=== PATIENT | female | born 1955 | race Two or more races ===

== ENCOUNTER 2021-03-18 12:33 | Emergency (ER) | payer MEDICARE, MEDICAID ==
[~2021-03-18] VITALS: Ht 167.6 cm; Wt 82.6 kg
[2021-03-18] MEDS ORDERED: cloNIDine HCL 0.1 MG TAB PO ONE (12:45)
[2021-03-18 13:50] VITALS: BP 123/95
== END 2021-03-18 13:58 | disposition home or self-care (01) ==
LOC: ER 12:33
DX: I10 Essential (primary) hypertension (principal); Z76.0 Encounter for issue of repeat prescription
CPT/HCPCS: 93005